=== PATIENT | female | born 1955 | race Caucasian/White ===

== ENCOUNTER 2021-05-08 07:58 | Outpatient (CLI) | payer OTHER | END 2021-05-08 08:05 | disposition home or self-care (01) | LOC: NUCLEAR 07:58 | PROVIDERS: ATTEND Internal Medicine | DX: G62.9 Polyneuropathy, unspecified (principal); E07.9 Disorder of thyroid, unspecified; E11.9 Type 2 diabetes mellitus without complications; M79.0 Rheumatism, unspecified | CPT/HCPCS: 78452; 93017; A9500; J0153 ==